=== PATIENT | male | born 1995 | race Caucasian/White ===

== ENCOUNTER 2020-06-12 12:44 | Day surgery (SDC) | payer BC ==
[2020-06-12] MEDS ORDERED: BUPIVACAINE 0.5% VIAL IJ ONE (12:45)
[2020-06-12] MEDS ORDERED: DIPRIVAN 200 MG/20 ML IV ONE ×2 (14:27→14:36)
--- NOTE | 2020-06-12 16:12 | XRAY ---
11 seconds fluoroscopy time in surgery for genicular nerve block of the left knee.
[2020-06-12] MEDS ORDERED: Lactated Ringers 1,000 ML IV ONE (16:41)
--- NOTE | 2020-06-13 22:44 | XRAY ---
Indication: Left knee genicular nerve block. Intraoperative fluoroscopy was provided for 11 seconds. 3 digital spot images submitted for interpretation demonstrates an anterior needle tip to be projected over both the medial and lateral margins of the proximal condylar region of the distal left femur. A third anterior needle tip is seen projected just medial to the proximal left tibia. Correlate with intraoperative findings/report.
== END 2020-06-12 14:57 | disposition home or self-care (01) ==
LOC: SDC-PAIN 12:44
PROVIDERS: ATTEND Psychiatry & Neurology Pain Medicine
DX: M17.11 Unilateral primary osteoarthritis, right knee (principal); D61.01 Constitutional (pure) red blood cell aplasia; Z79.52 Long term (current) use of systemic steroids; Z79.899 Other long term (current) drug therapy; M87.9 Osteonecrosis, unspecified; F41.8 Other specified anxiety disorders
CPT/HCPCS: 64454; 73560; 77002; J2704